=== PATIENT | female | born 1995 | race Caucasian/White ===

== ENCOUNTER → 2019-11-21 10:08 | Outpatient (CLI) | payer OTHER, SELFPAY ==
[2019-11-21 13:18] LABS: Amphetamine Urine VISTA NEGATIVE (<1000 ng/mL); Barbiturate Urine VISTA NEGATIVE (< 200 ng/mL); Benzodiazepine Urine VISTA NEGATIVE (< 200 ng/mL); Cocaine Urine VISTA NEGATIVE (< 300 ng/mL); Ecstacy Urine VISTA NEGATIVE (< 500 ng/mL); Methadone Urine VISTA NEGATIVE (< 300 ng/mL); PCP Urine VISTA NEGATIVE (< 25 ng/mL); THC Urine VISTA NEGATIVE (< 50 ng/mL); Vista UDS pH Range 6
== END ==
PROVIDERS: Family Provider Internal Medicine; PCP Internal Medicine; Referring Provider Internal Medicine Pulmonary Disease; Visit Provider Internal Medicine Pulmonary Disease
DX: G47.10 Hypersomnia, unspecified (principal)
CPT/HCPCS: 80307

== ENCOUNTER 2020-11-28 17:46 | Emergency (ER) | payer OTHER, SELFPAY ==
[2020-11-28 17:47] VITALS: BP 119/79; PULSE 74; RESP 14; TEMP 36.1; O2SAT 100; BMI 23.4
--- NOTE | 2020-11-28 18:36 | ED.DCSUM_ITS ---
- ER Visit Summary Date of Service: 11/28/20 Chief Complaint: [Abdominal pain] History of Present Illness: The patient is a 25 F [does the emergency department complaint of abdominal pain that started 2 days ago initially and was mild. Patient states the pain got severe this afternoon. She last ate lunch and had spaghetti around 1:30 PM. She has had nausea but no vomiting. She denies fever. She denies any blood in her stool or black tarry stool. She denies urinary symptoms. Patient states that she fell acute maybe she was constipated for last couple of days but today had one episode of loose to watery stool. Patient has not had any abdominal surgeries in the past. Her last menstrual period was 2 weeks ago. She denies any abnormal vaginal discharge or bleeding.] Physical Examination: [HEENT-PERRLA, EOMI. Cranial nerves II through XII grossly intact. TMs clear. Mucous membranes moist. No adenopathy. Cardiovascular-regular rate and rhythm without murmur or ectopy Lungs-clear to auscultation, chest wall stable without crepitus or subcu emphysema Abdomen-normoactive bowel sounds, soft. Patient has tenderness diffusely about the lower abdomen and specifically over McBurney's to the right lower quadrant. Patient has guarding. There is no rebound or rigidity. He has a positive heel strike and a positive Rovsing's. Extremities-intact ?4, normal range of motion, normal pulses, atraumatic] Test Results: [CBC with differential showed a slightly elevated white blood cell count of 12.0, hemoglobin 14.7, hematocrit 44, placed 296. Chemistries unremarkable. Urinalysis normal. hCG was negative. CT scan of the abdomen pelvis with IV and p.o. contrast showed a large right adnexal cyst measuring 6.7 x 5.5 x 5.1 cm. Patient had a normal appendix and cecum.] Emergency Department Course and Treatment: [ Established on arrival. Patient was given morphine sulfate 4 mg IV and Zofran 4 mg IV.] Treatment Plan: [Patient will be referred to her [employer]TAIN[facility] for follow-up within next 3 to 5 days. Patient did not anything stronger than ibuprofen for pain for home.] Disposition: [Discharged home in stable condition] Impression: [Right ovarian cyst] This note was generated with [employer] software. It may contain incorrect words, spelling, and punctuation that were not noted in review of the chart prior to signing ED Disposition - Plan for ED Patient: Referrals: Sruthi Anderson DO [Primary Care Provider] -
[2020-11-28] MEDS: Morphine 4 MG/ML Syringe IV (18:43)
[2020-11-28] MEDS: Ondansetron 4 MG/2 ML Vial IV (18:44)
[2020-11-28 18:46] LABS: Absolute Lymphocyte Count 2.92 X10^3/uL (0.83-4.51); Absolute Neutrophil Count 7.9 X10^3/uL (2.0-7.7); Basophil# 0.05 X10^3/uL; Basophil% 0.4 % (0-1); Eosinophil# 0.33 X10^3/uL; Eosinophils% 2.8 % (0-5); Hematocrit 44.1 % (37-47); Hemoglobin 14.7 g/dL (12.0-15.0); Lymphocyte # 2.92 X10^3/ul (4.0); Lymphocyte % 24.4 % (19-41); Mean Corp Hgb Conc 33.3 g/dL (32-36); Mean Corpuscular Volume 98.9 fL (81-99); Monocyte# 0.77 X10^3/uL; Monocyte% 6.4 % (0-10); NRBC Flagged by Analyzer 0 % (0-5); Neutrophil # 7.86 X10^3/uL (2.7-7.7); Neutrophil % 65.6 % (47-70); Platelet Count 296 K/mm3 (150-450); RBC Distribution Width CV 11.8 % (11.6-14.6); Red Blood Count 4.46 M/mm3 (4.2-5.4)
[2020-11-28 18:49] LABS: Internal QC Validated? YES +Cl - CLEAR BKGD
[2020-11-28 18:52] LABS: Pregnancy, Serum, hCG Quali. NEGATIVE Negative
[2020-11-28 18:58] LABS: Anion Gap 6 (5-15); BUN 17 mg/dL (7-18); BUN/Creat Ratio 20.3 RATIO (10-20); Calcium,Total 9.1 mg/dL (8.5-10.1); Chloride 106 mmol/L (98-107); Creatinine, Serum 0.84 mg/dL (0.55-1.02); EST Glomerular Filtration Rate 88 mL/min (>60); Est Glom Filt Rate - Afr Amer 106 mL/min (>60); Estimated Creatinine Clearance 99.56 ml/min; Glucose 75 mg/dL (74-106); Potassium 3.6 mmol/L (3.5-5.1); Sodium Level 138 mmol/L (136-145)
[2020-11-28 19:45] VITALS: BP 118/77; PULSE 74; RESP 16; O2SAT 100
[2020-11-28] MEDS: 0.9% Normal Saline 1,000 ML 125 ML IV (19:45)
--- NOTE | 2020-11-28 20:07 | CON.PCM_ITS ---
Problem List (1) Abdominal pain Status: Acute Qualifiers: Abdominal location: right lower quadrant Qualified Code(s): R10.31 - Right lower quadrant pain Reason for Consult Date of Consultation: 11/28/20 History of Present Illness: The patient is a 25 year old F who presents to the emergency room now with a 4- day history of feeling unwell. She claims 4 days ago she felt bloated and unwell. Today the pain seemed to localize more to the right lower quadrant. She did eat at 130 this afternoon. There was no nausea or vomiting at that time. She has had some looser stools later today. No fever or chills or sweats. 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 On November 08 she is tested and then quarantine. On November 15 she retested and tested negative for a second time. She denies ever having any symptoms. She has had a previous history of ovarian cyst but states she has not had one for a period of time. Laboratory demonstrates a white count of 12,000. There is no left shift. She is not on test. She does have a form of narcolepsy with a diagnosis of idiopathic hypersomnia. She is on medication for that. She has not had previous abdominal surgery. Past Medical History Allergies No Known Allergies Allergy (Verified 11/28/20 17:49) Home Medications: Ambulatory Orders Medication Instructions Recorded Escitalopram Oxalate [Lexapro] 20 mg PO DAILY 11/28/20 Modafinil 100 mg PO BID 11/28/20 Valacyclovir HCl [Valacyclovir] 1,000 mg PO DAILY 11/28/20 Smoking Status: Never smoker Review of Systems Constitutional: Denies: Chills, Fever Cardiovascular: Denies: Chest Pain Respiratory: Denies: Cough, Shortness of Breath Gastrointestinal: Reports: Abdominal Pain, Diarrhea. Denies: Vomiting Genitourinary: Denies: Dysuria Psychiatric: Denies: Anxiety Endocrine: Denies: Change in Body Habitus Patient Problems: Active and Suspected Problems Abdominal pain (Acute) - Physical Exam Vitals/I&O's: Vital Signs Temp Pulse Resp BP Pulse Ox 97.0 F L 74 16 118/77 100 11/28/20 17:47 11/28/20 19:45 11/28/20 19:45 11/28/20 19:45 11/28/20 19:45 Oxygen Delivery Method Room Air Weight: 149 lb 14.629 oz Body Mass Index (BMI) 23.4 General: Alert, Oriented x3, Cooperative, No apparent distress HEENT: Atraumatic Oral: Moist Mucosa Neck: Supple Lungs: Clear to auscultation, Normal air movement Cardiovascular: Regular rate, Regular Rhythm Abdomen: Soft - Mildly distended, focal tenderness right lower quadrant with mild guarding, no focal mass. Extremities: No Calf Tenderness Laboratory Results 11/28/20 18:35: WBC 12.0 H, RBC 4.46, Hgb 14.7, Hct 44.1, MCV 98.9, MCH 33.0 H, MCHC 33.3, RDW Std Deviation 43.0, RDW Coeff of Jaya 11.8, Plt Count 296, MPV 10.0, Immature Gran % (Auto) 0.400, Neut % (Auto) 65.6, Lymph % (Auto) 24.4, [place] % (Auto) 6.4, Eos % (Auto) 2.8, Baso % (Auto) 0.4, Absolute Neuts (auto) 7.9 H, Absolute Lymphs (auto) 2.92, Nucleated RBC % 0 11/28/20 18:35: Sodium 138, Potassium 3.6, Chloride 106, Carbon Dioxide 26.0, Anion Gap 6, BUN 17, Creatinine 0.84, Estim Creat Clear Calc 99.56, Est GFR (MDRD) Af Amer 106, Est GFR (MDRD) Non-Af 88, BUN/Creatinine Ratio 20.3 H, Glucose 75, Calcium 9.1 11/28/20 18:35: Serum , Qual NEGATIVE Current Medications Sodium Chloride () 1,000 mls @ 125 mls/hr IV .Q8H MYRNA Last Admin: 11/28/20 19:45 Dose: 125 mls/hr Documented by: Assessment/Plan All Active Problems Abdominal pain (Acute) 25-year-old female with 4-day history of nonspecific abdominal bloating now localized with right lower quadrant pain. Clinically this is suspicious for acute appendicitis. White count barely abnormal and no left shift. She does have a personal history of ovarian cyst. She has already taken the oral contrast for CT scan. We will pursue that imaging and then provide further novoa rgical input. I appreciate the opportunity of assisting with her surgical care. I was asked to see this patient by Dr. Donnelly and a written copy of my surgical consult recommendations will present in the charting. Steven Perez M.D., F.A.C.S. Addendum: I was able to review the CT imaging with Dr. Donnelly. Both he and I agree that the patient has a dominant sized right ovarian cyst. This would correlate with her past history and the fact she has not been well for 4 days with otherwise reasonably minimal symptoms. No appendix is seen to my view on the imaging. I do not believe that she will require general surgical intervention tonight and would benefit by [employer] consultation.
[2020-11-28 20:08] LABS: Bacteria 0 SEEN /hpf (None Seen); Mucous, Urine 0 SEEN /hpf (<or=2+); Red Blood Cells-Urine 0 SEEN /hpf (0-5); White Blood Cells 0 SEEN /hpf (0-5)
--- NOTE | 2020-11-28 20:08 | CT_ITS ---
STUDY: CT ABDOMEN AND PELVIS WITH CONTRAST REASON FOR EXAM: Female, 25 years old. Right lower quadrant pain and diarrhea. Elevated white count. RADIATION DOSAGE (If Supplied By Facility): CTDIvol = ( 9.95 ) mGy, DLP = ( 502.55 ) mGycm TECHNIQUE: Transaxial images were obtained from the dome of the diaphragm to the symphysis pubis with oral contrast. IV 100mL Isovue-300 was administered. Sagittal and coronal images were reconstructed. Individualized dose optimization techniques were used for this CT. COMPARISON: None. FINDINGS: The visualized lung bases are unremarkable. The visualized portions of the heart are within normal limits. Normal liver. Normal gallbladder and extrahepatic biliary system. Normal spleen. Normal pancreas. Normal bilateral adrenal glands. Normal right kidney. Normal left kidney. Normal visualized ureters. Normal visualized stomach. Normal small intestine. Normal colon. The appendix is visualized and appears normal. Normal abdominal aorta. Normal inferior vena cava. Normal retroperitoneum. Normal urinary bladder. The uterus appears heterogenous suggesting fibroids. There is a large right adnexal cyst measuring 6.7 x 5.5 x 5.1 cm. Normal left adnexa. There is minimal free fluid thought to be physiologic. There is no pelvic lymphadenopathy. No free air is seen within the peritoneal cavity. Normal abdominal wall. Normal osseous structures. CT/Abdomen/Pelvis WITH Contrast IMPRESSION: 1. Large right adnexal cyst. 2. Normal appendix, cecum and terminal ileum. 3. Minimal free fluid in the pelvis thought to be physiologic. 4. Slight heterogeneity of the uterine wall. Small fibroids cannot be ruled out. Electronically Signed: Peña Martinez DO at 20:26 EST Tel [phone], Service support ,
[2020-11-28 20:22] LABS: Color, Urine Yellow (Yellow); Glucose, Dipstick Normal (Normal); Ketone-Dipstick Negative (Negative); Leukocyte Esterase-Dipstick Negative /ul (Negative); Nitrite-Dipstick Negative (Negative); Occult Blood-Urine Negative /ul (Negative); Protein-Dipstick Negative (Negative); Urine Bilirubin Dipstick Negative (Negative); Urine Clarity Clear (Clear); Urine Urobilinogen Normal (Normal); Urine pH 6.5 (5.0 - 8.0)
[2020-11-28 20:34] LABS: Squamous Epithelial Cells - UA 0-5 SEEN /hpf (5-10)
--- NOTE | 2020-11-28 20:35 | DCINST.ED_ITS ---
ED Disposition - Plan for ED Patient: Instructions: ED Ovarian Cyst Referrals: Sruthi Anderson DO [Primary Care Provider] - 3-5 Days Additional Instructions: see your [employer] in 3-5 days
[2020-11-28 20:42] VITALS: BP 118/77; PULSE 90; RESP 16
== END 2020-11-28 20:43 | disposition home or self-care (01) ==
LOC: ED 19:10
PROVIDERS: Emergency Provider Emergency Medicine; PCP Internal Medicine
DX: N83.201 Unspecified ovarian cyst, right side (principal); Z79.899 Other long term (current) drug therapy
CPT/HCPCS: 74177; 80048; 81001; 84703; 85025; 96374; 96375; 99284; J7030; Q9967; A4216; J2405

== ENCOUNTER → 2023-08-07 | Outpatient (CLI) | payer BC, SELFPAY ==
--- NOTE | 2023-08-07 14:43 | CT_ITS ---
STUDY: CTA CHEST REASON FOR EXAM: Female, 28 years old. ELEVATED D DIMER -- elevated d-dimer RADIATION DOSAGE (If Supplied By Facility): CTDIvol = ( 7 ) mGy, DLP = ( 330.24 ) mGycm TECHNIQUE: The examination was performed with the intravenous administration of IV 100mL Isovue-370. Post-processing of the angiographic images was performed, with multiplanar reformation and 3D reconstruction. Individualized dose optimization techniques were used for this CT. COMPARISON: Prior study dated: CT of the abdomen and pelvis dated November 28, 2020 FINDINGS: Normal enhancement of the main pulmonary artery and right and left pulmonary arteries. Normal enhancement of the bilateral peripheral pulmonary arteries. There is no demonstrated pulmonary embolism. Normal thoracic aorta and visualized great vessels. There is no demonstrated aortic dissection. Normal heart and pericardium. There are no coronary artery calcifications. Normal mediastinum. Normal hilar regions. Normal visualized trachea and bronchi. The lungs are well expanded. Normal pulmonary parenchyma. Normal pleura. Normal chest wall structures. Normal osseous structures. The limited images of the upper abdomen demonstrates splenomegaly. CT/CTA Chest W/WO Contrast IMPRESSION: No demonstrated pulmonary embolism or arterial dissection. No acute cardiopulmonary process. Splenomegaly. Electronically Signed: Linh Andres MD at 16:07 EDT ,
== END | disposition home or self-care (01) ==
LOC: CT 14:42
PROVIDERS: PCP Internal Medicine; Referring Provider Internal Medicine; Visit Provider Internal Medicine
DX: R79.89 Other specified abnormal findings of blood chemistry (principal)
CPT/HCPCS: 71275; Q9967